=== PATIENT | male | born 1975 | race Caucasian/White ===

== ENCOUNTER 2023-07-20 14:29 | Inpatient (IN) | payer BC ==
[~2023-07-20] VITALS: Ht 175.3 cm; Wt 64.3 kg
[~2023-07-20 14:29] MED LIST: DIAZ5TAB PO; HYDR-4383 PO
[2023-07-20] MEDS ORDERED: loperamide 2mg capsule PO PRN (14:35)
[2023-07-20] MEDS ORDERED: magnesium hydroxide 30ml (MOM) UD suspension PO PRN (14:35)
[2023-07-20] MEDS ORDERED: acetaminophen 325mg tablet PO PRN ×2 (14:35)
[2023-07-20] MEDS ORDERED: NICOTINE POLACRILEX 2 MG LOZENGE BC PRN (14:35)
[2023-07-20] MEDS ORDERED: mag hydrox/Alum hydrox/simeth 30ml oral suspension PO PRN (14:35)
--- NOTE | 2023-07-20 15:37 | NUR ---
Admit note: [facility] for DTS/GD at 1455 from [facility]. Pt has not slept or eaten adequately in 6 days. He reported visual hallucinations and wishes for . He is unable to create a viable safety plan to address his mental health issues and suicidal thoughts. Pt has history of depression.
[2023-07-20] MEDS ORDERED: ESCI20TA39 PO (15:58)
[2023-07-20 16:12] VITALS: RESP 16; O2SAT 97
[2023-07-20 19:33] VITALS: BP 116/81; PULSE 109; RESP 16; TEMP 97.9; O2SAT 97
[2023-07-20] MEDS ORDERED: traZODone 50mg tablet PO ONE (22:40)
--- NOTE | 2023-07-21 03:43 | NUR ---
Nursing Progress Note: Problem: Pt admitted to [place] [facility] on a 5150 for DTS/GD from [facility]. Pt has not slept or eaten adequately in 6 days. He reported visual hallucinations and wishes for . He is unable to create a viable safety plan to address his mental health issues and suicidal thoughts. Pt has history of depression. Interventions: 1:1 assessment, medication administration and education, active listening, q15m safety checks. Response: Patient pleasant and cooperative with care; no scheduled medication this shift. He denied SI, HI, A/VH; no apparent delusions expressed. Patient appeared guarded as he responds minimally. He expressed not to have slept in a week; [facility] notified and one time order for Trazodone 100mg PO provided. Patient mostly self isolative but participated in HS snack and watched TV prior to bed; appears to be sleeping without issue. Plan: Patient requires interruption of current crisis in a safe and therapeutic environment.
[2023-07-21 08:00] VITALS: BP 119/79; PULSE 81; RESP 14; TEMP 98.2; O2SAT 97
[2023-07-21] MEDS ORDERED: ESCITALOPRAM 10 mg tablet 10 MG TABLET PO SCH (08:00)
[2023-07-21 09:06] LABS: HEMOGLOBIN A1C 5.2 % (4.5-6.2)
[2023-07-21 09:14] LABS: CHOL/HDL RATIO 3.8 (0.00-4.99); CHOLESTEROL 208 MG/DL (0-200); HDL CHOLESTEROL 55 MG/DL (35-60); LDL CHOLESTEROL 120 MG/DL (50-100); TRIGLYCERIDES 136 MG/DL (20-135)
--- NOTE | 2023-07-21 12:12 | NUR ---
Malnutrition consult: Pt reports 2-13 lb wt loss with decreased appetite/PO intake per malnutrition risk screen with RN and H&P. No recent scaled wt hx in EMR however current scaled weight is stable with scaled wt hx in EMR back to 2011 with wt range 57.5-64 kg at prior visits. Pt on a regular diet, documented to have refused first meal though did participate in HS snack and with 75% PO intake of breakfast this morning. Pt with no documented edema. Pt currently lacks a minimum of two criteria for malnutrition though will continue to monitor s/s of malnutrition and need for nutrition intervention. Addendum: 07/21/23 at [address] Amended: Links added.
--- NOTE | 2023-07-21 12:25 | NUR ---
Nursing Progress Note: Problem: Pt admitted to [place] [facility] on a 5150 for DTS/GD from [facility]. Pt has not slept or eaten adequately in 6 days. He reported visual hallucinations and wishes for . He is unable to create a viable safety plan to address his mental health issues and suicidal thoughts. Pt has history of depression. Interventions: Provided 1:1 assessment with therapeutic communication and active listening; medication administration/education/monitoring; pain management; encouraged participation of group activities; monitored q15m safety checks. Response: Pt calm and cooperative engaged in conversation during morning assessment. Pt took Lexapro for morning medication. He c/o of back pain. Agreed to position changes, ice packs and movement in an attempt to relieve the pain. Pt reports the pain from his back is what makes him suicidal. He denied SI, HI, A/VH. Pt isolates to his room. He states, "I've never been in a place like this." Assured him of his safety. He stated, he was not worried. Plan: Patient requires interruption of current crisis in a safe and therapeutic environment. Addendum: 07/21/23 at 1430 by Kelly Fontenot RN Toradol 15mg IM given for chronic back pain. Pt reports, "relief almost immediately."
[2023-07-21] MEDS ORDERED: traMADol 50MG tablet PO PRN (12:45)
[2023-07-21] MEDS ORDERED: ketorolac tromethamine 15mg/ml inj. IV ONE (13:00)
[2023-07-21] MEDS ORDERED: ketorolac tromethamine 15mg/ml inj. IM ONE (13:35)
[2023-07-21 19:00] VITALS: BP 127/82; PULSE 80; RESP 16; RESP 80; TEMP 98.3; O2SAT 97
[2023-07-21] MEDS ORDERED: amitriptyline 50mg tablet PO SCH (21:00)
[2023-07-21] MEDS ORDERED: gabapentin 300mg capsule PO SCH (21:00)
--- NOTE | 2023-07-22 00:14 | NUR ---
Nursing Progress Note: Problem: Pt admitted to [facility] on a 5150 for DTS/GD from [facility]. Pt has not slept or eaten adequately in 6 days. He reported visual hallucinations and wishes for . He is unable to create a viable safety plan to address his mental health issues and suicidal thoughts. Pt has history of depression. Interventions: Provided 1:1 assessment with therapeutic communication and active listening; medication administration/education/monitoring; pain management; encouraged participation of group activities; monitored q15m safety checks. Response: The patient was up on the unit watching tv with peers. He was pleasant during the evening assessment. He reports eating well and reported that he ate 100% of his evening meal. He reports that he has not had voices for 3 days and has had no visual hallucinations for the past 4-5 days. He denied side effects to medications. He stated that he had low back pain 7/10 and prn tramadol given. He denied feeling depressed and suicidal and stated that he wanted to live for his three children. His discharge plan is to stay with his parents in [facility]. Plan: Continue plan of care.
[2023-07-22 07:00] VITALS: RESP 16; O2SAT 96
[2023-07-22 08:00] VITALS: BP 122/85; PULSE 116; RESP 16; TEMP 99.2; O2SAT 96
[2023-07-22] MEDS ORDERED: ESCITALOPRAM 10 mg tablet 10 MG TABLET PO SCH (08:00)
[2023-07-22] MEDS ORDERED: TRAM50TA2 PO ×2 (13:45→13:54)
[2023-07-22] MEDS ORDERED: ESCI20TA39 PO ×2 (13:45→13:54)
[2023-07-22] MEDS ORDERED: gabapentin capsule PO ×2 (13:45→13:54)
[2023-07-22] MEDS ORDERED: AMIT50TA15 PO (13:54)
[2023-07-22 13:55] VITALS: RESP 16
[2023-07-22] MEDS ORDERED: gabapentin 300mg capsule PO ONE (13:55)
[2023-07-22] MEDS ORDERED: traMADol 50MG tablet PO ONE (13:55)
--- NOTE | 2023-07-22 15:02 | NUR ---
Pt. was up for vitals and breakfast, took meds without complications, and is cooperative with care. Asked him how he was feeling he stated, "Better." Asked what had brought him here she states, "I wasn't sleeping good at home. I am going through a divorce, I had called my at work asking her to bring home some medicine cause I wasn't feeling good, she came home, I was lying on the floor, she told me to get up or she was going to call 911, after like 10 seconds she called them, the ambulance showed up she told them I was crazy and a bunch of other stuff and here I am." Asked if he was currently having SI/HI, or A/V/H, all of which he denies. Asked him about a discharge plan he said, "My parents drove from [place] last night and I am going to be going to stay with them for a little bit to get through the divorce stuff." Plan: DC pt. home with parents.Discussed DC instruction and went over medications, he verbalized understanding and signed all his papers. He inventoried all belongings with [employer], signed for them and belongs were sent with him upon discharge at 1425. He was picked up by his dad.
== END 2023-07-22 14:25 | disposition home or self-care (01) | DRG 885 ==
LOC: ADULT MH 14:49
PROVIDERS: ADMIT Psychiatry & Neurology Psychiatry; ATTEND Psychiatry & Neurology Psychiatry
DX: F33.2 Major depressive disorder, recurrent severe without psychotic features (principal); G89.29 Other chronic pain; G47.00 Insomnia, unspecified; F10.20 Alcohol dependence, uncomplicated; M54.50 Low back pain, unspecified; R19.7 Diarrhea, unspecified; Z87.891 Personal history of nicotine dependence
CPT/HCPCS: 36415; 80061; 83036; 87081; J1885